=== PATIENT | male | born 1975 | race Caucasian/White ===

== ENCOUNTER 2018-07-05 23:19 | Emergency (ER) | payer OTHER ==
[~2018-07-05] VITALS: Ht 167.6 cm; Wt 81.7 kg
[~2018-07-05 23:19] MED LIST: ACETAMINOPHEN-1 EAC1 PO; ANTIVERT25 MG PO; AZITHROMYCIN250 MG PO; BACTRIM DS TAB1 EACH PO; BENADRYL25 MG PO; CALAMINE180 ML TP; CARAFATE 1 GM TA1 G1 PO; CLEOCIN HCL150 MG PO; CLINDAMYCIN HC150 MG PO; COLCHICINE0.6 MG PO; HYDROCHLOROTH12.5 M1 PO; IBUPROFEN 800800 M1 PO; INDOMETHACIN 2525 MG PO; KEFLEX500 MG PO; KENALOG60 GM TP; LISINOPRIL20 MG PO; NOHOMEMEDICATIONS; ONDANSETRON HCL4 M2 PO; PREDNISONE 10 M10 M1 PO; PREDNISONE 10 M10 MG PO; PREDNISONE 20 M20 MG PO; PRINIVIL10 MG PO; PROPRANOLOL 20M20 M1; TRAMADOL 50 MG50 MG PO; ULTRAM 50MG TAB50 MG PO; ZANTAC 150MG T150 MG PO; ZESTRIL40 MG PO; ZOFRAN4 MG PO; ZPAK PO
[2018-07-06 00:08] LABS: ABSOLUTE EOSINOPHILS 0.1 thou/uL (0.0-0.7); ABSOLUTE MONOCYTES 0.1 thou/uL (0.0-1.2); ABSOLUTE NEUTROPHILS 5.5 thou/uL (1.6-8.1); BASOPHILS 0.5 %; EOSINOPHILS 1.1 %; HEMATOCRIT 43.9 % (42.0-52.0); HEMOGLOBIN 15.2 gm/dL (14.0-18.0); LYMPHOCYTES 25.5 %; MCHC 34.6 g/dL (28.0-37.0); MCV 86.9 fL (80.0-100.0); MONOCYTES 1.9 %; MPV 6.9 fl. (7.2-11.1); NUCLEATED RBCS 0 /100WBC; PLATELET COUNT* 583 thou/uL (150-400); RBC 5.05 mil/uL (4.50-6.00); RDW-CV 13.8 % (10.5-14.5); WBC 7.8 thou/uL (4.0-11.0)
[2018-07-06 00:19] LABS: CALCIUM 8.4 mg/dL (8.5-10.1); CREATININE 1.2 mg/dL (0.6-1.3); POTASSIUM 3.2 mmol/L (3.5-5.1)
[2018-07-06 00:32] LABS: ALBUMIN 3.6 g/dL (3.4-5.0); TOTAL BILIRUBIN 0.6 mg/dL (<0.1-1.0); TOTAL PROTEIN 7.1 g/dL (6.4-8.2)
[2018-07-06 02:19] LABS: URINE BILIRUBIN NEGATIVE (Negative); URINE BLOOD NEGATIVE (Negative); URINE CLARITY CLEAR; URINE COLOR YELLOW; URINE GLUCOSE-RANDOM NEGATIVE (Negative); URINE KETONES NEGATIVE (Negative); URINE LEUKOCYTES-REFLEX NEGATIVE (Negative); URINE NITRITE-REFLEX NEGATIVE (Negative); URINE PROTEIN NEGATIVE (Negative); URINE UROBILINOGEN 0.2 E.U./dl (0.2-1.0)
[2018-07-06] MEDS ORDERED: PREDNISONE 20 M20 M1 PO (02:28)
[2018-07-06 02:37] LABS: AMP/METHAMP POSITIVE (Negative); BARBITURATES Negative (Negative); BENZODIAZEPINES Negative (Negative); COCAINE Negative (Negative); METHADONE Negative (Negative); OPIATES Negative (Negative); PCP Negative (Negative); THC Negative (Negative)
[2018-07-06 02:45] VITALS: BP 122/79
== END 2018-07-06 02:48 | disposition home or self-care (01) ==
LOC: M.ERS 23:19
PROVIDERS: Personal Emergency Response Attendant
DX: T50.995A Adverse effect of other drugs, medicaments and biological substances, initial encounter (principal); I10 Essential (primary) hypertension; Z88.0 Allergy status to penicillin; Z79.899 Other long term (current) drug therapy; Y92.89 Other specified places as the place of occurrence of the external cause

== ENCOUNTER 2018-09-29 00:35 | Emergency (ER) | payer OTHER ==
[~2018-09-29] VITALS: Ht 170.2 cm; Wt 72.6 kg
[~2018-09-29 00:35] MED LIST changes: +PREDNISONE 20 M20 M1 PO
[2018-09-29] MEDS ORDERED: PRINIVIL20 M1 PO (00:57)
[2018-09-29 01:04] LABS: ABSOLUTE BASOPHILS 0.1 thou/uL (0.0-0.2); ABSOLUTE EOSINOPHILS 0.5 thou/uL (0.0-0.7); ABSOLUTE LYMPHOCYTES 2.6 thou/uL (0.8-5.3); ABSOLUTE MONOCYTES 0.9 thou/uL (0.0-1.2); ABSOLUTE NEUTROPHILS 4.3 thou/uL (1.6-8.1); BASOPHILS 1.4 %; LYMPHOCYTES 30.7 %; MCH 30.2 pg (26.0-34.0); MCHC 34.6 g/dL (28.0-37.0); MCV 87.2 fL (80.0-100.0); MPV 6.4 fl. (7.2-11.1); NUCLEATED RBCS 0 /100WBC; PLATELET COUNT* 543 thou/uL (150-400); POLYS 50.9 %; RBC 5.61 mil/uL (4.50-6.00); RDW-CV 13.8 % (10.5-14.5); WBC 8.5 thou/uL (4.0-11.0)
[2018-09-29 01:11] LABS: CALCIUM 9.2 mg/dL (8.5-10.1)
[2018-09-29 01:16] LABS: ALBUMIN 3.3 g/dL (3.4-5.0); TOTAL BILIRUBIN 0.3 mg/dL (<0.1-1.0)
[2018-09-29 01:43] LABS: SALICYLATE < 2.8 mg/dL (2.8-20.0)
[2018-09-29 01:56] LABS: ACETAMINOPHEN < 2 ug/mL (10-30); ALCOHOL < 10 mg/dL (<10)
[2018-09-29 01:59] LABS: URINE BILIRUBIN NEGATIVE (Negative); URINE BLOOD NEGATIVE (Negative); URINE CLARITY CLEAR; URINE COLOR YELLOW; URINE GLUCOSE-RANDOM NEGATIVE (Negative); URINE KETONES NEGATIVE (Negative); URINE LEUKOCYTES-REFLEX NEGATIVE (Negative); URINE NITRITE-REFLEX NEGATIVE (Negative); URINE PROTEIN NEGATIVE (Negative); URINE SPECIFIC GRAVITY 1.015 (1.005-1.030); URINE UROBILINOGEN 0.2 E.U./dl (0.2-1.0)
[2018-09-29 02:07] LABS: AMP/METHAMP POSITIVE (Negative); BARBITURATES Negative (Negative); BENZODIAZEPINES Negative (Negative); COCAINE Negative (Negative); METHADONE Negative (Negative); OPIATES Negative (Negative); PCP Negative (Negative); THC Negative (Negative)
[2018-09-29 16:00] VITALS: BP 122/85
== END 2018-09-29 16:02 | disposition still patient (30) ==
LOC: M.ERS 00:35
PROVIDERS: Emergency Medicine
DX: F15.10 Other stimulant abuse, uncomplicated (principal); L02.413 Cutaneous abscess of right upper limb; F91.8 Other conduct disorders; I10 Essential (primary) hypertension; Z88.0 Allergy status to penicillin

== ENCOUNTER 2019-10-06 10:15 | Emergency (ER) | payer OTHER ==
[~2019-10-06] VITALS: Ht 170.2 cm; Wt 72.6 kg
[~2019-10-06 10:15] MED LIST changes: +PRINIVIL20 M1 PO
[2019-10-06 10:51] LABS: URINE BLOOD NEGATIVE (Negative); URINE CLARITY CLEAR; URINE COLOR YELLOW; URINE GLUCOSE-RANDOM NEGATIVE (Negative); URINE KETONES NEGATIVE (Negative); URINE LEUKOCYTES-REFLEX NEGATIVE (Negative); URINE NITRITE-REFLEX NEGATIVE (Negative); URINE PROTEIN NEGATIVE (Negative); URINE SPECIFIC GRAVITY >= 1.030 (1.005-1.030)
[2019-10-06 10:53] LABS: ABSOLUTE BASOPHILS 0.1 thou/uL (0.0-0.2); ABSOLUTE EOSINOPHILS 0.2 thou/uL (0.0-0.7); ABSOLUTE LYMPHOCYTES 1.9 thou/uL (0.8-5.3); ABSOLUTE MONOCYTES 0.9 thou/uL (0.0-1.2); ABSOLUTE NEUTROPHILS 7.5 thou/uL (1.6-8.1); BASOPHILS 0.9 %; EOSINOPHILS 2.1 %; HEMATOCRIT 47.4 % (42.0-52.0); HEMOGLOBIN 16.8 gm/dL (14.0-18.0); LYMPHOCYTES 18.2 %; MCH 30.9 pg (26.0-34.0); MCHC 35.4 g/dL (28.0-37.0); MCV 87.2 fL (80.0-100.0); MONOCYTES 8.8 %; MPV 6.4 fl. (7.2-11.1); NUCLEATED RBCS 0 /100WBC; PLATELET COUNT* 529 thou/uL (150-400); RBC 5.44 mil/uL (4.50-6.00); RDW-CV 12.8 % (10.5-14.5); WBC 10.7 thou/uL (4.0-11.0)
[2019-10-06 10:53] LABS: ICTOTEST (BILI CONFIRMATORY) Negative (Negative); URINE BILIRUBIN 2+ (Negative)
[2019-10-06 10:58] LABS: AMP/METHAMP POSITIVE (Negative); BARBITURATES Negative (Negative); BENZODIAZEPINES Negative (Negative); COCAINE Negative (Negative); METHADONE Negative (Negative); OPIATES Negative (Negative); PCP Negative (Negative); THC Negative (Negative)
[2019-10-06 11:01] LABS: CALCIUM 9.5 mg/dL (8.5-10.1); POTASSIUM 3.7 mmol/L (3.5-5.1)
[2019-10-06 11:06] LABS: ALBUMIN 3.9 g/dL (3.4-5.0); TOTAL BILIRUBIN 0.7 mg/dL (<0.1-1.0); TOTAL PROTEIN 7.8 g/dL (6.4-8.2)
[2019-10-06 11:21] LABS: ACETAMINOPHEN < 2 ug/mL (10-30); ALCOHOL < 10 mg/dL (<10); SALICYLATE < 2.8 mg/dL (2.8-20.0)
[2019-10-06 13:04] VITALS: BP 143/115
== END 2019-10-06 13:09 | disposition home or self-care (01) ==
LOC: M.ERS 10:15
PROVIDERS: Emergency Medicine Emergency Medical Services
DX: F15.10 Other stimulant abuse, uncomplicated (principal); I10 Essential (primary) hypertension; Z88.0 Allergy status to penicillin; Z79.899 Other long term (current) drug therapy

== ENCOUNTER 2019-11-15 23:16 | Emergency (ER) | payer OTHER ==
[~2019-11-15] VITALS: Ht 170.2 cm; Wt 74.8 kg
[2019-11-15 23:39] LABS: URINE BLOOD NEGATIVE (Negative); URINE CLARITY CLEAR; URINE COLOR YELLOW; URINE GLUCOSE-RANDOM NEGATIVE (Negative); URINE KETONES TRACE (Negative); URINE LEUKOCYTES NEGATIVE (Negative); URINE NITRITE NEGATIVE (Negative); URINE PROTEIN NEGATIVE (Negative); URINE SPECIFIC GRAVITY 1.025 (1.005-1.030); URINE UROBILINOGEN 0.2 E.U./dl (0.2-1.0)
[2019-11-15 23:40] LABS: ICTOTEST (BILI CONFIRMATORY) Negative (Negative); URINE BILIRUBIN 1+ (Negative)
[2019-11-15 23:47] LABS: HEMATOCRIT 44.8 % (42.0-52.0); HEMOGLOBIN 16.1 gm/dL (14.0-18.0); MCH 30.8 pg (26.0-34.0); MCHC 35.9 g/dL (28.0-37.0); MCV 85.9 fL (80.0-100.0); MPV 6.7 fl. (7.2-11.1); RBC 5.22 mil/uL (4.50-6.00); RDW-CV 13.3 % (10.5-14.5); WBC 10.4 thou/uL (4.0-11.0)
[2019-11-15 23:47] LABS: AMP/METHAMP POSITIVE (Negative); BARBITURATES Negative (Negative); BENZODIAZEPINES Negative (Negative); COCAINE Negative (Negative); METHADONE Negative (Negative); OPIATES Negative (Negative); PCP Negative (Negative); THC Negative (Negative)
[2019-11-16 00:06] LABS: CALCIUM 8.8 mg/dL (8.5-10.1); CREATININE 1.1 mg/dL (0.6-1.3); POTASSIUM 3.4 mmol/L (3.5-5.1)
[2019-11-16 00:16] LABS: ACETAMINOPHEN < 2 ug/mL (10-30); ALBUMIN 3.7 g/dL (3.4-5.0); ALCOHOL < 10 mg/dL (<10); SALICYLATE < 2.8 mg/dL (2.8-20.0); TOTAL BILIRUBIN 0.3 mg/dL (<0.1-1.0); TOTAL PROTEIN 7.3 g/dL (6.4-8.2)
[2019-11-16 15:48] VITALS: BP 109/78
== END 2019-11-16 15:52 ==
LOC: M.ERS 23:16
PROVIDERS: Personal Emergency Response Attendant
DX: R45.851 Suicidal ideations (principal); F15.20 Other stimulant dependence, uncomplicated; I10 Essential (primary) hypertension; Z88.0 Allergy status to penicillin

== ENCOUNTER 2019-12-09 04:21 | Emergency (ER) | payer OTHER ==
[~2019-12-09] VITALS: Ht 170.2 cm; Wt 65.8 kg
[2019-12-09 05:34] VITALS: BP 156/98
== END 2019-12-09 05:34 | disposition home or self-care (01) ==
LOC: M.ERS 04:21
DX: F15.10 Other stimulant abuse, uncomplicated (principal); R44.0 Auditory hallucinations; R10.13 Epigastric pain; I10 Essential (primary) hypertension; Z88.0 Allergy status to penicillin

== ENCOUNTER 2019-12-15 19:22 | Emergency (ER) | payer OTHER ==
[~2019-12-15] VITALS: Ht 167.6 cm; Wt 72.6 kg
[2019-12-15] MEDS ORDERED: LEXAPRO 10 MG T10 M1 PO (19:36)
[2019-12-15] MEDS ORDERED: LISINOPRIL2.5 MG PO (19:37)
[2019-12-15 20:06] LABS: ABSOLUTE BASOPHILS 0.1 thou/uL (0.0-0.2); ABSOLUTE EOSINOPHILS 0.4 thou/uL (0.0-0.7); ABSOLUTE LYMPHOCYTES 2.5 thou/uL (0.8-5.3); ABSOLUTE MONOCYTES 0.9 thou/uL (0.0-1.2); ABSOLUTE NEUTROPHILS 6.7 thou/uL (1.6-8.1); BASOPHILS 1.2 %; EOSINOPHILS 3.6 %; HEMATOCRIT 46.1 % (42.0-52.0); HEMOGLOBIN 16.5 gm/dL (14.0-18.0); LYMPHOCYTES 23.4 %; MCH 30.9 pg (26.0-34.0); MCHC 35.7 g/dL (28.0-37.0); MCV 86.4 fL (80.0-100.0); MONOCYTES 8.8 %; MPV 6.1 fl. (7.2-11.1); NUCLEATED RBCS 0 /100WBC; PLATELET COUNT* 494 thou/uL (150-400); RBC 5.34 mil/uL (4.50-6.00); RDW-CV 13.2 % (10.5-14.5); WBC 10.6 thou/uL (4.0-11.0)
[2019-12-15 20:12] VITALS: BP 140/113
[2019-12-15 20:12] LABS: CALCIUM 8.9 mg/dL (8.5-10.1); POTASSIUM 4.4 mmol/L (3.5-5.1)
[2019-12-15 20:17] LABS: ALBUMIN 3.6 g/dL (3.4-5.0); TOTAL BILIRUBIN 0.4 mg/dL (<0.1-1.0); TOTAL PROTEIN 7.1 g/dL (6.4-8.2)
== END 2019-12-15 20:15 | disposition left against medical advice (07) ==
LOC: M.ERS 19:22
PROVIDERS: Emergency Medicine
DX: F15.10 Other stimulant abuse, uncomplicated (principal); I10 Essential (primary) hypertension; Z88.0 Allergy status to penicillin

== ENCOUNTER 2019-12-15 20:59 | Emergency (ER) | payer OTHER ==
[~2019-12-15] VITALS: Ht 167.6 cm; Wt 68.0 kg
[~2019-12-15 20:59] MED LIST changes: +LEXAPRO 10 MG T10 M1 PO; +LISINOPRIL2.5 MG PO
[2019-12-15 23:20] VITALS: BP 167/115
== END 2019-12-15 23:26 | disposition home or self-care (01) ==
LOC: M.ERS 20:59
DX: F15.10 Other stimulant abuse, uncomplicated (principal); I10 Essential (primary) hypertension; Z88.0 Allergy status to penicillin

== ENCOUNTER 2020-08-02 20:20 | Emergency (ER) | payer OTHER ==
[~2020-08-02] VITALS: Ht 170.2 cm; Wt 68.0 kg
[~2020-08-02 20:20] MED LIST changes: +HYDROXYZINE PA100 MG PO; +OMEPRAZOLE 20 M20 M1 PO
[2020-08-02 22:32] LABS: URINE BILIRUBIN 2+ (Negative); URINE BLOOD TRACE (Negative); URINE CLARITY CLEAR; URINE COLOR YELLOW; URINE GLUCOSE-RANDOM NEGATIVE (Negative); URINE KETONES NEGATIVE (Negative); URINE LEUKOCYTES NEGATIVE (Negative); URINE NITRITE NEGATIVE (Negative); URINE PROTEIN 1+ (Negative); URINE SPECIFIC GRAVITY >= 1.030 (1.005-1.030); URINE UROBILINOGEN 0.2 E.U./dl (0.2-1.0)
[2020-08-02 22:35] LABS: ICTOTEST (BILI CONFIRMATORY) Negative (Negative)
[2020-08-02 22:37] LABS: HEMATOCRIT 46.2 % (42.0-52.0); MCH 30.6 pg (26.0-34.0); MCHC 34.6 g/dL (28.0-37.0); MCV 88.4 fL (80.0-100.0); MPV 6.3 fl. (7.2-11.1); RBC 5.23 mil/uL (4.50-6.00); RDW-CV 13.2 % (10.5-14.5); WBC 11.4 thou/uL (4.0-11.0)
[2020-08-02 22:40] LABS: AMP/METHAMP POSITIVE (Negative); BARBITURATES Negative (Negative); BENZODIAZEPINES Negative (Negative); COCAINE Negative (Negative); METHADONE Negative (Negative); OPIATES Negative (Negative); PCP Negative (Negative); THC Negative (Negative)
[2020-08-02 22:44] LABS: CALCIUM 9.2 mg/dL (8.5-10.1); CREATININE 1.1 mg/dL (0.6-1.3); POTASSIUM 3.7 mmol/L (3.5-5.1)
[2020-08-02 22:48] LABS: TOTAL BILIRUBIN 0.9 mg/dL (<0.1-1.0); TOTAL PROTEIN 7.6 g/dL (6.4-8.2)
[2020-08-02 22:52] LABS: ACETAMINOPHEN < 2 ug/mL (10-30); ALCOHOL < 10 mg/dL (<10); SALICYLATE < 2.8 mg/dL (2.8-20.0)
[2020-08-03 13:56] VITALS: BP 135/81
== END 2020-08-03 13:57 | disposition home or self-care (01) ==
LOC: M.ERS 20:20
PROVIDERS: Personal Emergency Response Attendant
DX: F15.959 Other stimulant use, unspecified with stimulant-induced psychotic disorder, unspecified (principal); I10 Essential (primary) hypertension; Z79.899 Other long term (current) drug therapy; Z88.0 Allergy status to penicillin

== ENCOUNTER 2020-08-08 19:05 | Emergency (ER) | payer OTHER ==
[~2020-08-08] VITALS: Ht 170.2 cm; Wt 72.6 kg
[2020-08-08 19:20] LABS: URINE BLOOD NEGATIVE (Negative); URINE CLARITY CLEAR; URINE COLOR YELLOW; URINE GLUCOSE-RANDOM NEGATIVE (Negative); URINE KETONES NEGATIVE (Negative); URINE LEUKOCYTES-REFLEX NEGATIVE (Negative); URINE NITRITE-REFLEX NEGATIVE (Negative); URINE PROTEIN NEGATIVE (Negative); URINE SPECIFIC GRAVITY >= 1.030 (1.005-1.030)
[2020-08-08 19:27] LABS: AMP/METHAMP POSITIVE (Negative); BARBITURATES Negative (Negative); BENZODIAZEPINES Negative (Negative); COCAINE Negative (Negative); ICTOTEST (BILI CONFIRMATORY) Negative (Negative); METHADONE Negative (Negative); OPIATES Negative (Negative); PCP Negative (Negative); THC Negative (Negative); URINE BILIRUBIN 1+ (Negative)
[2020-08-08 19:35] LABS: ABSOLUTE BASOPHILS 0.1 thou/uL (0.0-0.2); ABSOLUTE EOSINOPHILS 0.7 thou/uL (0.0-0.7); ABSOLUTE LYMPHOCYTES 2.1 thou/uL (0.8-5.3); ABSOLUTE MONOCYTES 0.9 thou/uL (0.0-1.2); ABSOLUTE NEUTROPHILS 4.8 thou/uL (1.6-8.1); BASOPHILS 1.4 %; EOSINOPHILS 7.6 %; HEMATOCRIT 47.1 % (42.0-52.0); HEMOGLOBIN 16.3 gm/dL (14.0-18.0); LYMPHOCYTES 24.3 %; MCH 30.6 pg (26.0-34.0); MCHC 34.6 g/dL (28.0-37.0); MCV 88.5 fL (80.0-100.0); MONOCYTES 10.8 %; MPV 6.5 fl. (7.2-11.1); NUCLEATED RBCS 0 /100WBC; PLATELET COUNT* 489 thou/uL (150-400); POLYS 55.9 %; RBC 5.32 mil/uL (4.50-6.00); RDW-CV 13.2 % (10.5-14.5); WBC 8.6 thou/uL (4.0-11.0)
[2020-08-08 19:43] LABS: CALCIUM 8.9 mg/dL (8.5-10.1); POTASSIUM 3.4 mmol/L (3.5-5.1)
[2020-08-08 19:48] LABS: ALBUMIN 3.5 g/dL (3.4-5.0); TOTAL BILIRUBIN 0.9 mg/dL (<0.1-1.0)
[2020-08-08 19:54] LABS: ALCOHOL < 10 mg/dL (<10)
[2020-08-08 19:55] LABS: ACETAMINOPHEN < 2 ug/mL (10-30); SALICYLATE < 2.8 mg/dL (2.8-20.0)
[2020-08-09 01:00] VITALS: BP 110/70
== END 2020-08-09 01:00 ==
LOC: M.ERS 19:05
PROVIDERS: Family Medicine
DX: F32.9 Major depressive disorder, single episode, unspecified (principal); R45.851 Suicidal ideations; Z20.828 Contact with and (suspected) exposure to other viral communicable diseases; I10 Essential (primary) hypertension; Z88.0 Allergy status to penicillin; Z79.899 Other long term (current) drug therapy

== ENCOUNTER 2020-11-19 18:47 | Emergency (ER) | payer OTHER ==
[~2020-11-19] VITALS: Ht 170.2 cm; Wt 74.8 kg
[2020-11-19] MEDS ORDERED: ABILIFY10 MG (19:09)
[2020-11-19] MEDS ORDERED: LISINOPRIL10 MG PO (19:09)
[2020-11-19 19:19] LABS: URINE BILIRUBIN NEGATIVE (Negative); URINE BLOOD NEGATIVE (Negative); URINE CLARITY CLEAR; URINE COLOR YELLOW; URINE GLUCOSE-RANDOM NEGATIVE (Negative); URINE KETONES NEGATIVE (Negative); URINE LEUKOCYTES-REFLEX NEGATIVE (Negative); URINE NITRITE-REFLEX NEGATIVE (Negative); URINE PROTEIN NEGATIVE (Negative); URINE SPECIFIC GRAVITY >= 1.030 (1.005-1.030); URINE UROBILINOGEN 0.2 E.U./dl (0.2-1.0)
[2020-11-19 19:28] LABS: AMP/METHAMP POSITIVE (Negative); BARBITURATES Negative (Negative); BENZODIAZEPINES POSITIVE (Negative); COCAINE Negative (Negative); METHADONE Negative (Negative); OPIATES Negative (Negative); PCP Negative (Negative); THC Negative (Negative)
[2020-11-19 19:42] LABS: ABSOLUTE BASOPHILS 0.1 thou/uL (0.0-0.2); ABSOLUTE EOSINOPHILS 0.5 thou/uL (0.0-0.7); ABSOLUTE MONOCYTES 0.8 thou/uL (0.0-1.2); ABSOLUTE NEUTROPHILS 5.3 thou/uL (1.6-8.1); BASOPHILS 0.9 %; EOSINOPHILS 6.2 %; HEMATOCRIT 48.7 % (42.0-52.0); HEMOGLOBIN 16.8 gm/dL (14.0-18.0); LYMPHOCYTES 22.9 %; MCH 30.3 pg (26.0-34.0); MCHC 34.4 g/dL (28.0-37.0); MCV 87.9 fL (80.0-100.0); MPV 6.2 fl. (7.2-11.1); NUCLEATED RBCS 0 /100WBC; PLATELET COUNT* 508 thou/uL (150-400); RBC 5.54 mil/uL (4.50-6.00); RDW-CV 13.4 % (10.5-14.5); WBC 8.8 thou/uL (4.0-11.0)
[2020-11-19 20:01] LABS: CALCIUM 9.1 mg/dL (8.5-10.1); CREATININE 1.1 mg/dL (0.6-1.3)
[2020-11-19 20:05] LABS: ALBUMIN 3.8 g/dL (3.4-5.0); TOTAL BILIRUBIN 0.8 mg/dL (<0.1-1.0); TOTAL PROTEIN 7.3 g/dL (6.4-8.2)
[2020-11-19 20:10] LABS: ACETAMINOPHEN < 2 ug/mL (10-30); ALCOHOL < 10 mg/dL (<10); SALICYLATE < 2.8 mg/dL (2.8-20.0)
[2020-11-19] MEDS ORDERED: ABILIFY10 MG PO (23:26)
[2020-11-20 00:05] VITALS: BP 144/101
== END 2020-11-20 00:06 | disposition still patient (30) ==
LOC: M.ERS 18:47
PROVIDERS: Emergency Medicine Emergency Medical Services
DX: F15.959 Other stimulant use, unspecified with stimulant-induced psychotic disorder, unspecified (principal); F91.9 Conduct disorder, unspecified; I10 Essential (primary) hypertension; Z88.0 Allergy status to penicillin; Z79.899 Other long term (current) drug therapy

== ENCOUNTER 2021-06-09 20:30 | Emergency (ER) | payer OTHER ==
[~2021-06-09] VITALS: Ht 170.2 cm; Wt 79.4 kg
[~2021-06-09 20:30] MED LIST changes: +ABILIFY10 MG; +ABILIFY10 MG PO; +LISINOPRIL10 MG PO
[2021-06-09] MEDS ORDERED: ABILIFY10 MG PO (21:44)
[2021-06-09 22:14] VITALS: BP 167/102
== END 2021-06-09 22:14 | disposition home or self-care (01) ==
LOC: M.ERS 20:30
DX: R44.3 Hallucinations, unspecified (principal); F15.10 Other stimulant abuse, uncomplicated; I10 Essential (primary) hypertension; Z79.899 Other long term (current) drug therapy; Z88.0 Allergy status to penicillin

== ENCOUNTER 2021-07-31 19:41 | Emergency (ER) | payer OTHER ==
[~2021-07-31] VITALS: Ht 170.2 cm; Wt 81.7 kg
[2021-07-31] MEDS ORDERED: XANAX 0.25 MG0.25 MG PO (19:56)
[2021-07-31] MEDS ORDERED: ADDERALL 10 MG10 MG PO (19:57)
[2021-07-31] MEDS ORDERED: PROAIR HFA8.5 GM INH (21:06)
[2021-07-31] MEDS ORDERED: LISINOPRIL-HCT1 EACH PO (21:06)
[2021-07-31] MEDS ORDERED: PREDNISONE 20 M20 M1 PO (21:06)
[2021-07-31 21:33] VITALS: BP 135/92
== END 2021-07-31 21:33 | disposition home or self-care (01) ==
LOC: M.ERS 19:41
DX: B34.9 Viral infection, unspecified (principal); Z20.822 Contact with and (suspected) exposure to COVID-19; I10 Essential (primary) hypertension; Z79.899 Other long term (current) drug therapy; Z88.0 Allergy status to penicillin

== ENCOUNTER 2021-09-25 14:12 | Emergency (ER) | payer OTHER ==
[~2021-09-25] VITALS: Ht 170.2 cm; Wt 72.6 kg
[~2021-09-25 14:12] MED LIST changes: +ADDERALL 10 MG10 MG PO; +LISINOPRIL-HCT1 EACH PO; +PROAIR HFA8.5 GM INH; +XANAX 0.25 MG0.25 MG PO
[2021-09-25] MEDS ORDERED: ABILIFY10 MG PO (14:51)
[2021-09-25] MEDS ORDERED: PREDNISONE 20 M20 MG PO (15:29)
[2021-09-25 15:32] VITALS: BP 159/122
== END 2021-09-25 15:33 | disposition home or self-care (01) ==
LOC: M.ERS 14:12
DX: M10.9 Gout, unspecified (principal); I10 Essential (primary) hypertension; Z79.899 Other long term (current) drug therapy; Z88.0 Allergy status to penicillin

== ENCOUNTER 2021-10-04 15:13 | Emergency (ER) | payer OTHER ==
[~2021-10-04] VITALS: Ht 170.2 cm; Wt 79.4 kg
[2021-10-04] MEDS ORDERED: LISINOPRIL-HCT1 EACH PO (15:49)
[2021-10-04 16:01] VITALS: BP 148/94
== END 2021-10-04 16:03 | disposition home or self-care (01) ==
LOC: M.ERS 15:13
DX: I10 Essential (primary) hypertension (principal); Z76.0 Encounter for issue of repeat prescription; Z88.0 Allergy status to penicillin; Z79.899 Other long term (current) drug therapy